=== PATIENT | female | born 1965 | race Caucasian/White ===

== ENCOUNTER 2019-10-31 15:42 | Inpatient (IN) | payer OTHER ==
[2019-10-31 16:48] LABS: #Lymphocytes 2.2 thou/uL (1.20-3.40); #Monocytes 0.9 thou/uL (0.11-0.59); #Neutrophils 6.3 thou/uL (1.40-6.50); %Basophils 0.3 % (0.0-1.0); %Eosinophils 0.3 % (0.0-10.0); %Lymphocytes 23.4 % (21.0-51.0); Hemoglobin 11.1 g/dL (12.0-16.0); Mean Corpuscular HGB CONC 35.9 g/dL (32.0-36.0); Mean Corpuscular Hemoglobin 29.6 pg (27.0-31.0); Mean Corpuscular Volume 82.5 fL (78.0-98.0); Mean Platelet Volume 6.5 fL (7.4-10.4); Platelet Count 271 thou/uL (130-400); RBC Distribution Width 11.8 % (11.5-14.5); Red Blood Cell (RBC) Count 3.75 mill/uL (4.20-5.40); White Blood Cell (WBC) Count 9.4 thou/uL (4.8-10.8)
[2019-10-31 16:56] LABS: Bacteria/HPF None Seen HPF (None Seen); Bilirubin Negative (Negative); Blood, Urine Trace (Negative); Clarity Clear (Clear); Glucose, Urine (Dipstick) Normal (Negative); Leukocyte Negative Leu/uL (Negative); Nitrite Negative (Negative); Protein, Urine (Dipstick) 10 mg/dL (Neg-Trace); RBC/HPF 0-3 HPF (0-3); Squamous Epithelial 0-3 HPF (0-3); Urobilinogen Normal mg/dL (Less than 2); WBC/HPF 0-3 HPF (0-3)
[2019-10-31 17:01] LABS: Acetaminophen Less than 6.0 mcg/mL (10.0-30.0); Alcohol Less than 10 mg/dL (Less than 10); Salicylate Less than 8.0 mg/dL (15.0-30.0)
[2019-10-31 17:02] LABS: Amphetamine Detected (NotDetected); Barbiturates Screen Not Detected (NotDetected); Benzodiazepine Screen Not Detected (NotDetected); Cocaine Metabolite Screen Not Detected (NotDetected); Medtox Control Line Valid? VALID (VALID); Medtox Reader # READER 4; Methadone Not Detected (NotDetected); Methamphetamine Not Detected (NotDetected); Opiate Screen Not Detected (NotDetected); Oxycodone Screen Not Detected (NotDetected); Phencyclidine (PCP) Not Detected (NotDetected); THC/Cannabinoid Screen Not Detected (NotDetected); Tricyclic Screen Not Detected (NotDetected)
[2019-10-31 17:03] LABS: ALT (SGPT) 21 U/L (8-55); AST (SGOT) 22 U/L (5-34); Albumin 3.6 g/dL (3.5-5.0); Alkaline Phosphatase 81 U/L (40-110); Anion Gap 16 mmol/L (10-20); BUN (Urea Nitrogen) 18 mg/dL (9.8-20.1); Bilirubin, Total 0.5 mg/dL (0.2-1.2); CK (CPK) 22 U/L (29-168); Calc. Creatinine Clearance 0 mL/min (70-130); Calcium 7.9 mg/dL (7.8-10.44); Carbon Dioxide 23 mmol/L (22-29); Chloride 87 mmol/L (98-107); Estimated GFR-MDRD 60; Globulin 2.2 g/dL (2.4-3.5); Glucose 158 mg/dL (70-105); Potassium 3.6 mmol/L (3.5-5.1); Protein, Total 5.8 g/dL (6.0-8.3); Sodium 122 mmol/L (136-145)
[2019-10-31] MEDS ORDERED: Ondansetron PF 4 MG/2 ML Vial ONE (18:11)
[2019-10-31] MEDS ORDERED: Acetaminophen 325 MG TAB ONE (18:48)
[2019-10-31] MEDS ORDERED: Bacitracin 1 PK ONE (18:48)
[2019-10-31] MEDS ORDERED: Dextrose 50% Abboject 50 ML SYRINGE SLOW IVP PRN (19:10)
[2019-10-31] MEDS ORDERED: Dextrose 5% in Water 1,000 ML IV PRN (19:10)
[2019-10-31] MEDS ORDERED: Diazepam 5 MG TAB PO PRN (19:11)
--- NOTE | 2019-10-31 19:16 | PDOC.HHP ---
Hospitalist HPI - History of Present Illness History of Present Illness: Ms. Bridges is a 54 y/o lady with PMH of Depression, T2DM, history of left BKA, who presents to the ED with altered mental status. She reportedly came into the ED with sodium of 118. She has been apparently drinking 24 oz of beer daily at the house. She additionally has not been eating and drinking regular water much over the past few days. Apparently, today she felt depressed and had thoughts of suicide but no intent and called her family. They went to her house and called the ambulance as they had seen she fell to her knees and was on the floors. She did not lose consciousness. She reportedly takes multiple psychiatric medications for depression but has had questionable compliance with them. She states that these feelings have been present after amputation of Left BKA last year. She did not hit her head. Denies fever, chills, nausea, vomiting , chest pain, shortness of breath, or other associated symptoms. Hospitalist ROS - Review of Systems Constitutional: denies: fever, chills, sweats, weakness, malaise, other Eyes: denies: pain, vision change, conjunctivae inflammation, eyelid inflammation, redness, other ENT: denies: ear pain, ear discharge, nose pain, nose discharge, nose congestion , mouth pain, mouth swelling, throat pain, throat swelling, other Respiratory: denies: cough, dry, shortness of breath, hemoptysis, SOB with excertion, pleuritic pain, sputum, wheezing, other Cardiovascular: denies: chest pain, palpitations, orthopnea, paroxysmal noc. dyspnea, edema, light headedness, other Gastrointestinal: denies: nausea, vomiting, abdominal pain, diarrhea, constipation, melena, hematochezia, other Genitourinary: denies: dysuria, frequency, incontinence, hematuria, retention, other Musculoskeletal: denies: neck pain, shoulder pain, arm pain, back pain, hand pain, leg pain, foot pain, other Skin: denies: rash, lesions, michelle, bruising, other Neurological: reports: confusion Hospitalist History - Past Medical History Source: patient, family Cardiac: reports: no pertinent history Pulmonary: reports: no pertinent history CELLULAR BIOLOGIST: reports: no pertinent history Gastrointestinal: reports: no pertinent history Heme/Onc: reports: no pertinent history Hepatobiliary: reports: no pertinent history Psych: reports: Anxiety, Addictions, Depression Musculoskeletal: reports: no pertinent history Rheumatologic: reports: no pertinent history Infectious Disease: reports: no pertinent history ENT: reports: no pertinent history Renal/: reports: no pertinent history Endocrine: reports: Diabetes Dermatology: reports: no pertinent history - Past Surgical History Past Surgical History: reports: Other (left BKA) - Family History Family History: reports: no pertinent history - Social History Smoking Status: Smoker, status unknown Alcohol: reports: Heavy Living Situation: Alone Activity level: independent ambulation - Exam General Appearance: NAD, awake alert General - other findings: anxious appearing Eye: PERRL, anicteric sclera ENT: normocephalic atraumatic, no oropharyngeal lesions, moist mucosa Neck: supple, symmetric, no JVD, no thyromegaly, no lymphadenopathy, no carotid bruit Heart: RRR, no murmur, no gallops, no rubs, normal peripheral pulses Respiratory: CTAB, no wheezes, no rales, no ronchi, normal chest expansion, no tachypnea, normal percussion Gastrointestinal: soft, non-tender, non-distended, normal bowel sounds, no palpable masses, no hepatomegaly, no splenomegaly, no bruit Extremities: no cyanosis, no clubbing Extremities - other findings: Left BKA Skin: normal turgor, no lesions, no rashes Neurological: cranial nerve grossly intact, normal sensation to touch, no weakness, no focal deficits, no new deficit Musculoskeletal: normal tone, normal strength, no muscle wasting Psychiatric: normal affect, normal behavior, A&O x 3 Psychiatric - other findings: Anxious, depressed mood Hospitalist Results - Labs Result Diagrams: 10/31/19 16:35 10/31/19 16:35 Lab results: WBC 9.4 thou/uL (4.8-10.8) 10/31/19 16:35 Hgb 11.1 g/dL (12.0-16.0) L 10/31/19 16:35 Hct 30.9 % (36.0-47.0) L 10/31/19 16:35 MCV 82.5 fL (78.0-98.0) 10/31/19 16:35 Plt Count 271 thou/uL (130-400) 10/31/19 16:35 Neutrophils % 67.0 % (42.0-75.0) 10/31/19 16:35 Sodium 122 mmol/L (136-145) L 10/31/19 16:35 Potassium 3.6 mmol/L (3.5-5.1) 10/31/19 16:35 Chloride 87 mmol/L (98-107) L 10/31/19 16:35 Carbon Dioxide 23 mmol/L (22-29) 10/31/19 16:35 BUN 18 mg/dL (9.8-20.1) 10/31/19 16:35 Creatinine 0.98 mg/dL (0.6-1.1) 10/31/19 16:35 Glucose 158 mg/dL (70-105) H 10/31/19 16:35 Calcium 7.9 mg/dL (7.8-10.44) 10/31/19 16:35 Total Bilirubin 0.5 mg/dL (0.2-1.2) 10/31/19 16:35 AST 22 U/L (5-34) 10/31/19 16:35 ALT 21 U/L (8-55) 10/31/19 16:35 Alkaline Phosphatase 81 U/L (40-110) 10/31/19 16:35 Creatine Kinase 22 U/L (29-168) L 10/31/19 16:35 Serum Total Protein 5.8 g/dL (6.0-8.3) L 10/31/19 16:35 Albumin 3.6 g/dL (3.5-5.0) 10/31/19 16:35 Urine Ketones Trace mg/dL (Negative) A 10/31/19 16:15 Urine Blood Trace (Negative) A 10/31/19 16:15 Urine Nitrite Negative (Negative) 10/31/19 16:15 Ur Leukocyte Esterase Negative Lulu/uL (Negative) 10/31/19 16:15 Urine RBC 0-3 HPF (0-3) 10/31/19 16:15 Urine WBC 0-3 HPF (0-3) 10/31/19 16:15 Ur Squamous Epith Cells 0-3 HPF (0-3) 10/31/19 16:15 Urine Bacteria None Seen HPF (None Seen) 10/31/19 16:15 Hospitalist H&P A/P - Problem (1) Hyponatremia Code(s): E87.1 - HYPO-OSMOLALITY AND HYPONATREMIA Status: Acute Assessment and Plan: Multifactorial due to anti-depressants, beer potomania, and decreased oral intake (2) Acute encephalopathy Code(s): G93.40 - ENCEPHALOPATHY, UNSPECIFIED Status: Acute (3) Alcohol abuse Code(s): F10.10 - ALCOHOL ABUSE, UNCOMPLICATED Status: Acute (4) Depression with suicidal ideation Code(s): F32.9 - MAJOR DEPRESSIVE DISORDER, SINGLE EPISODE, UNSPECIFIED; R45.851 - SUICIDAL IDEATIONS Status: Chronic Assessment and Plan: Uncontrolled dperession, noncompliance to medication (5) Type 2 diabetes mellitus Status: Chronic (6) History of amputation below knee Code(s): Z89.519 - ACQUIRED ABSENCE OF UNSPECIFIED LEG BELOW KNEE Status: Chronic - Plan Plan: Admit to telemetry. Likely greater than 2 midnights for eval and tx Sodium has been corrected from 118 to 122, will continue NS @ 100 ml/hr and recheck in the AM, encephalopathy improving Place on ASE alcohol withdrawal protocol Suicide precuations and one to one monitoring, consult to psych MH Medication reconciled for her home Olanzapine and Mirtazpine, could also be affecting her baseline sodium levels Zofran PRN for nausea and vomiting Check A1C in the AM, continue sliding scale insulin, BSG ACHS DVT Prophylaxis: SCDs Code status: Full code Disposition: Admit for sodium monitoring. Consult case management for help with dispo, patient cannot take care of herself at home. Will need psych follow up and optimization of her depression medications.
[2019-10-31] MEDS ORDERED: Thiamine HCl 200 MG/2 ML VIAL IM SCH (20:00)
[2019-10-31] MEDS ORDERED: traMADol HCl 50 MG TAB ONE (21:56)
[2019-11-01] MEDS: Sodium Chloride 0.9% 1,000 ML IV SCH ×2 (00:33→10:31)
[2019-11-01] MEDS: Ondansetron PF 4 MG/2 ML Vial IVP PRN (01:05)
[2019-11-01] MEDS: Acetaminophen 325 MG TAB PO PRN ×2 (01:05→08:16)
[2019-11-01] MEDS: traMADol HCl 50 MG TAB PO PRN ×3 (03:05→21:09)
[2019-11-01] MEDS: Lorazepam 1 MG TAB PO PRN ×4 (03:06→21:09)
[2019-11-01 04:48] LABS: #Lymphocytes 2.6 thou/uL (1.20-3.40); #Monocytes 0.8 thou/uL (0.11-0.59); #Neutrophils 4.7 thou/uL (1.40-6.50); %Basophils 0.4 % (0.0-1.0); %Eosinophils 0.2 % (0.0-10.0); %Lymphocytes 31.7 % (21.0-51.0); %Neutrophils 57.8 % (42.0-75.0); Hemoglobin 10.9 g/dL (12.0-16.0); Mean Corpuscular HGB CONC 36.3 g/dL (32.0-36.0); Mean Corpuscular Hemoglobin 30.1 pg (27.0-31.0); Mean Platelet Volume 6.5 fL (7.4-10.4); Platelet Count 307 thou/uL (130-400); RBC Distribution Width 11.6 % (11.5-14.5); Red Blood Cell (RBC) Count 3.62 mill/uL (4.20-5.40); White Blood Cell (WBC) Count 8.2 thou/uL (4.8-10.8)
[2019-11-01 04:53] LABS: Hemoglobin A1c 6.3 % (4.0-6.0)
[2019-11-01 05:08] LABS: Anion Gap 13 mmol/L (10-20); BUN (Urea Nitrogen) 16 mg/dL (9.8-20.1); Calc. Creatinine Clearance 79 mL/min (70-130); Calcium 8.2 mg/dL (7.8-10.44); Carbon Dioxide 24 mmol/L (22-29); Chloride 90 mmol/L (98-107); Estimated GFR-MDRD 50; Glucose 227 mg/dL (70-105); Potassium 3.2 mmol/L (3.5-5.1); Sodium 124 mmol/L (136-145)
[2019-11-01] MEDS: HumaLOG 300 UNITS/3 ML VIAL SC PRN ×3 (05:48→17:15)
[2019-11-01] MEDS: Magnesium Oxide 400 MG TAB PO SCH (08:16)
[2019-11-01] MEDS: Thiamine 100 MG TAB PO SCH (08:16)
[2019-11-01] MEDS: Multivitamin W/ Minerals 1 TAB PO SCH (08:16)
[2019-11-01] MEDS: Folic Acid 1 MG TAB PO SCH (08:16)
[2019-11-01] MEDS ORDERED: Sodium Chloride 0.9% 1,000 ML IV SCH (10:06)
[2019-11-01] MEDS ORDERED: HumaLOG 300 UNITS/3 ML VIAL SC PRN (10:12)
[2019-11-01] MEDS ORDERED: Potassium Chloride 20 MEQ TAB PO SCH (10:15)
--- NOTE | 2019-11-01 10:15 | PDOC.HOSPP ---
- Subjective Encounter Date: 11/01/19 (f/u hyponatremia) Encounter Time: 10:13 Subjective: Pt reports she is feeling better - she c/o chronic pain, weakness. States she was ready to give up yesterday and was drinking. Denies any n/v - Objective Vital Signs & Weight: Vital Signs (12 hours) Temp Pulse Resp BP BP BP Pulse Ox 11/01/19 08:10 98.6 F 89 16 116/60 96 11/01/19 03:27 97.5 F L 91 16 118/58 L 92 L 10/31/19 22:30 98.3 F 91 16 127/68 127/68 99 Weight Weight 190 lb Result Diagrams: 11/01/19 04:20 11/01/19 04:20 Additional Labs: Accuchecks 11/01/19 10/31/19 05:39 21:52 POC Glucose 244 H 178 H EKG Reviewed by me: Yes (tele - sinus 90's) Hospitalist ROS - Review of Systems Constitutional: reports: weakness - Medication Medications: Active Medications Generic Name Dose Route Start Last Admin Trade Name Freq PRN Reason Stop Dose Admin Acetaminophen 650 mg 10/31/19 18:51 11/01/19 08:16 Tylenol PO 650 mg Q4H PRN Administration Headache/Fever/Mild Pain (1-3) Folic Acid 1 mg 11/01/19 09:00 11/01/19 08:16 Folvite PO 1 mg DAILY HARSHAL Administration Insulin Human Lispro 0 units 10/31/19 19:10 11/01/19 05:48 Humalog SC 3 unit .MILD SLIDING SCALE PRN Administration Mild Correctional Scale Iron/Minerals/Multivitamins 1 tab 11/01/19 09:00 11/01/19 08:16 Theragran M PO 1 tab DAILY HARSHAL Administration Lorazepam 1 mg 11/01/19 02:56 11/01/19 09:37 Ativan PO 1 mg Q6H PRN Administration Anxiety Magnesium Oxide 400 mg 11/01/19 09:00 11/01/19 08:16 Magnesium Oxide PO 400 mg DAILY HARSHAL Administration Ondansetron HCl 4 mg 10/31/19 18:51 11/01/19 01:05 Zofran IVP 4 mg Q6H PRN Administration Nausea/Vomiting Thiamine HCl 100 mg 11/01/19 09:00 11/01/19 08:16 Thiamine PO 100 mg DAILY HARSHAL Administration Tramadol HCl 50 mg 11/01/19 03:00 11/01/19 03:05 Ultram PO 50 mg Q8H PRN Administration Pain - Exam General Appearance: NAD Heart: RRR, no murmur Respiratory: CTAB, no wheezes Respiratory - other findings: distant lung sounds Gastrointestinal: soft, non-tender, non-distended, normal bowel sounds Extremities: no cyanosis, no clubbing, no edema Extremities - other findings: left bka Psychiatric - other findings: blunted affect, l/l/gd thought process Hosp A/P (1) Hyponatremia Code(s): E87.1 - HYPO-OSMOLALITY AND HYPONATREMIA Status: Acute (2) Hypokalemia Code(s): E87.6 - HYPOKALEMIA Status: Acute (3) Acute encephalopathy Code(s): G93.40 - ENCEPHALOPATHY, UNSPECIFIED Status: Acute (4) Alcohol abuse Code(s): F10.10 - ALCOHOL ABUSE, UNCOMPLICATED Status: Chronic (5) Depression with suicidal ideation Code(s): F32.9 - MAJOR DEPRESSIVE DISORDER, SINGLE EPISODE, UNSPECIFIED; R45.851 - SUICIDAL IDEATIONS Status: Acute (6) Type 2 diabetes mellitus Status: Chronic Qualifiers: Diabetes mellitus shelter insulin use: with shelter use - Plan Hyponatremia - q6h checks - Nephrology consult - monitor creatinine - slight increase today hypokalemia - replace - check mag DM 2 - pt reports taking levemir at home - 13 units BID, will start here at 15 units once daily - SSI with meals and bedtime Alcohol use/abuse - monitor for withdrawal with ASE protocol weakness - pt/ot will need [facility] when ready for discharge dvt prophy - lovenox gi prophy - not indicated code status full reviewed plan of care with patient, no questions or further needs at end of eval
[2019-11-01] MEDS ORDERED: Insulin Glargine 15 UNITS in Pre-Filled Syringe 1 EACH SC SCH (10:30)
[2019-11-01 12:33] LABS: Anion Gap 14 mmol/L (10-20); BUN (Urea Nitrogen) 17 mg/dL (9.8-20.1); Calc. Creatinine Clearance 81 mL/min (70-130); Calcium 8.2 mg/dL (7.8-10.44); Carbon Dioxide 24 mmol/L (22-29); Chloride 93 mmol/L (98-107); Estimated GFR-MDRD 52; Glucose 185 mg/dL (70-105); Potassium 3.6 mmol/L (3.5-5.1); Sodium 127 mmol/L (136-145)
--- NOTE | 2019-11-01 14:29 | CON ---
DATE OF CONSULTATION: 11/01/2019 CONSULTING PHYSICIAN: Anais Yi MD REASON FOR CONSULTATION: Hyponatremia. REASON FOR ADMISSION: Altered mentation. HISTORY OF PRESENT ILLNESS: This is a 54-year-old female with history of depression, type 2 diabetes, came to the hospital with altered mentation and was found to have low sodium of 118, started on IV fluids and with slow collection and Nephrology was consulted. The patient is severely depressed and also alcohol use and is asking for help to fight with her addiction. She was also complaining of nausea, vomiting, and diarrhea before admission. PAST MEDICAL HISTORY: Positive for depression, type 2 diabetes, peripheral vascular disease, and alcohol use. PAST SURGICAL HISTORY: Left BKA. HOME MEDICATIONS: Reviewed. ALLERGIES: NO KNOWN DRUG ALLERGIES. SOCIAL HISTORY: No smoking, alcohol, or illicit drug abuse. FAMILY HISTORY: No history of any kidney disease. REVIEW OF SYSTEMS: CONSTITUTIONAL: Negative for weight loss or gain, ability to conduct usual activities. SKIN: Negative for rash, itching. EYES: Negative for double vision, pain. ENT/MOUTH: Negative for nose bleeding, neck stiffness, pain, tenderness. CARDIOVASCULAR: Negative for palpitations, dyspnea on exertion, orthopnea. RESPIRATORY: Negative for shortness of breath, wheezing, cough, hemoptysis, fever or night sweats. GASTROINTESTINAL: Negative for poor appetite, abdominal pain, heartburn, nausea, vomiting, constipation, or diarrhea. GENITOURINARY: Negative for urgency, frequency, dysuria, nocturia. MUSCULOSKELETAL: Negative for pain, swelling. NEUROLOGIC/PSYCHIATRIC: Negative for anxiety, depression. ALLERGY/IMMUNOLOGIC: Negative for skin rash, bleeding tendency. PHYSICAL EXAMINATION: GENERAL: Reveals a well-built female, in no apparent distress. VITAL SIGNS: Temperature 98.6, pulse 89, respiratory rate 16, and blood pressure 116/60. HEENT: Atraumatic, normocephalic. Oral mucosa is moist. NECK: Supple. CARDIOVASCULAR: S1 and S2. Rate and rhythm regular. RESPIRATORY: Clear. GASTROINTESTINAL: Abdomen is soft. MUSCULOSKELETAL: No tenderness. No edema. DERMATOLOGIC: No skin rash. NEUROLOGIC: Alert and awake. PSYCHIATRIC: Flat affect. LABORATORY DATA: Hemoglobin is 10.9. Potassium 3.6, sodium 127 from 118 yesterday, BUN 17, and creatinine is 1.1. ASSESSMENT AND PLAN: 1. Sodium with nine points of correction within 24 hours. I would stop the IV fluids and we will monitor the sodium closely every 6 hour. 2. Edema, controlled. 3. History of hypertension. 4. Anemia. 5. Depression with alcohol use, need assistance. 6. Amphetamine use. 7. We will stop IV fluids and monitor sodium. Job ID: [id number]
--- NOTE | 2019-11-01 16:23 | PDOC.EVN ---
Event Note - Event Note Event Note: pt reported to nurse that tramadol is not working for her - requested norco. Will adjust tramadol to 50 mg tabs - 1 or 2 q6h prn for different levels of pain , specified in the order.
[2019-11-01 18:28] LABS: Anion Gap 13 mmol/L (10-20); BUN (Urea Nitrogen) 16 mg/dL (9.8-20.1); Calc. Creatinine Clearance 85 mL/min (70-130); Calcium 8.6 mg/dL (7.8-10.44); Carbon Dioxide 26 mmol/L (22-29); Chloride 95 mmol/L (98-107); Estimated GFR-MDRD 55; Glucose 159 mg/dL (70-105); Potassium 4.3 mmol/L (3.5-5.1); Sodium 130 mmol/L (136-145)
[2019-11-02] MEDS: traMADol HCl 50 MG TAB PO PRN (04:43)
[2019-11-02 04:46] LABS: #Lymphocytes 3.4 thou/uL (1.20-3.40); #Neutrophils 5.3 thou/uL (1.40-6.50); %Basophils 0.4 % (0.0-1.0); %Eosinophils 0.4 % (0.0-10.0); %Lymphocytes 34.9 % (21.0-51.0); %Neutrophils 54.3 % (42.0-75.0); Hemoglobin 11.7 g/dL (12.0-16.0); Mean Corpuscular HGB CONC 33.8 g/dL (32.0-36.0); Mean Corpuscular Hemoglobin 28.6 pg (27.0-31.0); Mean Corpuscular Volume 84.5 fL (78.0-98.0); Mean Platelet Volume 6.4 fL (7.4-10.4); Platelet Count 343 thou/uL (130-400); RBC Distribution Width 12.1 % (11.5-14.5); Red Blood Cell (RBC) Count 4.09 mill/uL (4.20-5.40); White Blood Cell (WBC) Count 9.7 thou/uL (4.8-10.8)
[2019-11-02 04:57] LABS: Anion Gap 13 mmol/L (10-20); BUN (Urea Nitrogen) 14 mg/dL (9.8-20.1); Calc. Creatinine Clearance 91 mL/min (70-130); Calcium 8.3 mg/dL (7.8-10.44); Carbon Dioxide 24 mmol/L (22-29); Chloride 100 mmol/L (98-107); Estimated GFR-MDRD 60; Glucose 165 mg/dL (70-105); Potassium 4.2 mmol/L (3.5-5.1); Sodium 133 mmol/L (136-145)
[2019-11-02] MEDS: Lorazepam 1 MG TAB PO PRN ×3 (09:40→21:03)
[2019-11-02] MEDS: Thiamine 100 MG TAB PO SCH (09:43)
[2019-11-02] MEDS: Magnesium Oxide 400 MG TAB PO SCH (09:43)
[2019-11-02] MEDS: Folic Acid 1 MG TAB PO SCH (09:43)
[2019-11-02] MEDS: Multivitamin W/ Minerals 1 TAB PO SCH (09:43)
[2019-11-02] MEDS: Enoxaparin Sodium 40 MG/0.4 ML SYRINGE SC SCH (09:48)
[2019-11-02] MEDS: Diazepam 5 MG TAB PO PRN (10:42)
[2019-11-02] MEDS: Insulin Glargine 15 UNITS in Pre-Filled Syringe 1 EACH SC SCH (10:44)
--- NOTE | 2019-11-02 12:51 | PDOC.HOSPP ---
- Subjective Encounter Date: 11/02/19 (f/u hyponatremia) Encounter Time: 12:50 Subjective: Nursing staff report pt was agitated earlier today, stating she wanted to leave , she wants a divorce with her who is in the room. Right now she thinks she is in yarsanism. She reports some pain in her kidney area. - Objective Vital Signs & Weight: Vital Signs (12 hours) Temp Pulse Resp BP BP Pulse Ox 11/02/19 11:55 98.6 F 92 18 144/74 H 144/74 H 96 11/02/19 10:40 129/70 11/02/19 07:05 98.5 F 90 18 125/72 96 11/02/19 04:04 98.8 F 93 16 129/71 100 Weight Admit Weight 192 lb 3.2 oz Weight 190 lb 9.6 oz I&O: 11/01/19 11/02/19 11/03/19 06:59 06:59 06:59 Intake Total 2180 Output Total 1550 Balance 630 Result Diagrams: 11/02/19 04:14 11/02/19 04:14 Additional Labs: Accuchecks 11/02/19 11/02/19 11/01/19 10:27 05:46 20:32 POC Glucose 198 H 151 H 153 H 11/01/19 16:38 POC Glucose 238 H EKG Reviewed by me: Yes (tele - sinus 80's-100's with occ pvc's) Hospitalist ROS - Medication Medications: Active Medications Generic Name Dose Route Start Last Admin Trade Name Freq PRN Reason Stop Dose Admin Acetaminophen 650 mg 10/31/19 18:51 11/01/19 08:16 Tylenol PO 650 mg Q4H PRN Administration Headache/Fever/Mild Pain (1-3) Diazepam 5 mg 11/01/19 04:00 11/02/19 10:42 Valium PO 5 mg Q4H PRN Administration FOR ASE 10 OR GREATER Enoxaparin Sodium 40 mg 11/02/19 09:00 11/02/19 09:48 Lovenox SC 40 mg 0900 HARSHAL Administration Folic Acid 1 mg 11/01/19 09:00 11/02/19 09:43 Folvite PO 1 mg DAILY HARSHAL Administration Insulin Glargine 15 units/ 0.15 mls @ 0 mls/hr 11/02/19 09:00 11/02/19 10:44 Miscellaneous Medication SC 0.15 mls QAM HARSHAL Administration Insulin Human Lispro 0 units 10/31/19 19:10 11/01/19 17:15 Humalog SC 3 unit .MILD SLIDING SCALE PRN Administration Mild Correctional Scale Iron/Minerals/Multivitamins 1 tab 11/01/19 09:00 11/02/19 09:43 Theragran M PO 1 tab DAILY HRASHAL Administration Lorazepam 1 mg 11/01/19 02:56 11/02/19 09:40 Ativan PO 1 mg Q6H PRN Administration Anxiety Magnesium Oxide 400 mg 11/01/19 09:00 11/02/19 09:43 Magnesium Oxide PO 400 mg DAILY HARSHAL Administration Ondansetron HCl 4 mg 10/31/19 18:51 11/01/19 01:05 Zofran IVP 4 mg Q6H PRN Administration Nausea/Vomiting Thiamine HCl 100 mg 11/01/19 09:00 11/02/19 09:43 Thiamine PO 100 mg DAILY HARSHAL Administration Tramadol HCl 100 mg 11/01/19 16:21 11/02/19 04:43 Ultram PO 100 mg Q6H PRN Administration Moderate to Severe Pain (6-10) - Exam General Appearance: NAD Respiratory: CTAB, no wheezes Gastrointestinal: soft, non-tender, non-distended, normal bowel sounds Extremities: no cyanosis, no clubbing, no edema Extremities - other findings: multiple ecchymosis along bilateral LE and left BKA Skin - other findings: few areas of ecchymosis on back Musculoskeletal - other findings: back - ttp along the left paralumbar muscles without palpa abnormality Psychiatric - other findings: oriented to person, time, but not to location/ situation Hosp A/P (1) Hyponatremia Code(s): E87.1 - HYPO-OSMOLALITY AND HYPONATREMIA Status: Acute (2) Hypokalemia Code(s): E87.6 - HYPOKALEMIA Status: Acute (3) Acute encephalopathy Code(s): G93.40 - ENCEPHALOPATHY, UNSPECIFIED Status: Acute (4) Alcohol abuse Code(s): F10.10 - ALCOHOL ABUSE, UNCOMPLICATED Status: Chronic (5) Depression with suicidal ideation Code(s): F32.9 - MAJOR DEPRESSIVE DISORDER, SINGLE EPISODE, UNSPECIFIED; R45.101 - SUICIDAL IDEATIONS Status: Acute (6) Type 2 diabetes mellitus Status: Chronic Qualifiers: Diabetes mellitus shelter insulin use: with terminal system operator use - Plan Hyponatremia - improved, IVF stopped early in day yesterday - appreciate Nephrology consult hypokalemia - resolved, magnesium level was normal DM 2 - controlled, continue long acting and short acting insulin Alcohol use/abuse - monitor for withdrawal with ASE protocol - pt is off of her multiple mood medications - uncertain of her baseline. From the hyponatremia perspective, she is cleared for [facility]MR evaluation. Will need to continue monitoring for alcohol withdrawal and treat accordingly weakness - pt/ot Consult [facility] today for evaluation. dvt prophy - lovenox gi prophy - not indicated code status full reviewed plan of care with patient, no questions or further needs at end of eval Addendum - 17:21 - called by charge nurse who asked if pt medically cleared for [facility]. I thought [facility] was contacted already - they have not been. Reviewed ASE scores today and 10 (received valium) and 8 soon after. Recommend that we monitor for alcohol withdrawal overnight and if no signs, contact [facility]MR in the morning.
--- NOTE | 2019-11-02 14:19 | PRG ---
DATE OF SERVICE: 11/02/2019 SUBJECTIVE: Patient was seen and examined at bedside and overnight events noted. Patient denies any shortness of breath or chest pain or palpitation. No history of nausea or vomiting or diarrhea or fever or chills or cramps. OBJECTIVE: GENERAL: This is an obese female, in no apparent distress. VITAL SIGNS: Temperature 98.6. Heart rate 93. Respiratory rate 18. Blood pressure 144/74. HEENT: Atraumatic, normocephalic. Oral mucosa is moist NECK: Supple. CARDIOVASCULAR: S1, S2 heard. Rate and rhythm regular. RESPIRATORY: Clear to auscultation. GASTROINTESTINAL: Abdomen is soft. MUSCULOSKELETAL: No tenderness. No edema. DERMATOLOGIC: No skin rash. NEUROLOGIC: Alert and awake and oriented X3. No focal neurologic deficits. Moving all the extremities. PSYCHIATRIC: Mood and affect normal. LABORATORY DATA: Potassium is 4.2, sodium 133, creatinine is 0.9. ASSESSMENT AND PLAN: 1. Hyponatremia. Sodium without acute correction. IV fluids already started. We will monitor. 2. Edema, controlled. 3. History of hypertension. 4. Anemia. 5. Depression. 6. Substance abuse. 7. Continue counseling. We will monitor sodium. Job ID: [id number]
[2019-11-03 05:12] LABS: Anion Gap 11 mmol/L (10-20); BUN (Urea Nitrogen) 15 mg/dL (9.8-20.1); Calc. Creatinine Clearance 108 mL/min (70-130); Calcium 8.9 mg/dL (7.8-10.44); Carbon Dioxide 26 mmol/L (22-29); Chloride 103 mmol/L (98-107); Estimated GFR-MDRD 72; Glucose 145 mg/dL (70-105); Potassium 4.3 mmol/L (3.5-5.1); Sodium 136 mmol/L (136-145)
[2019-11-03] MEDS: Magnesium Oxide 400 MG TAB PO SCH (07:56)
[2019-11-03] MEDS: Folic Acid 1 MG TAB PO SCH (07:56)
[2019-11-03] MEDS: Enoxaparin Sodium 40 MG/0.4 ML SYRINGE SC SCH (07:56)
[2019-11-03] MEDS: Multivitamin W/ Minerals 1 TAB PO SCH (07:56)
[2019-11-03] MEDS: Thiamine 100 MG TAB PO SCH (07:56)
[2019-11-03] MEDS: Diazepam 5 MG TAB PO PRN ×4 (07:58→21:25)
[2019-11-03] MEDS: Insulin Glargine 15 UNITS in Pre-Filled Syringe 1 EACH SC SCH (08:00)
--- NOTE | 2019-11-03 10:48 | PDOC.HOSPP ---
- Subjective Encounter Date: 11/03/19 Encounter Time: 13:30 Subjective: Patient very shaky this morning, mildly confused. Oriented to person, date, year , town, but not hospital. Denies visual or tactile hallucinations. States she hasn't had EtOH for 3 weeks, which is different from the history obtained in the ER that she has recently been drinking heavily. - Objective Vital Signs & Weight: Vital Signs (12 hours) Temp Pulse Pulse Resp BP BP BP 11/03/19 09:17 107 H 156/95 H 11/03/19 07:36 97.9 F 103 H 20 181/81 H 11/03/19 04:00 141/70 H 11/03/19 03:40 98.7 F 99 20 141/70 H Pulse Ox 11/03/19 09:17 11/03/19 07:36 98 11/03/19 04:00 11/03/19 03:40 96 Weight Admit Weight 192 lb 3.2 oz Weight 189 lb 8 oz I&O: 11/02/19 11/03/19 11/04/19 06:59 06:59 06:59 Intake Total 2180 1000 Output Total 1550 900 Balance 630 100 Result Diagrams: 11/02/19 04:14 11/03/19 04:09 Additional Labs: Accuchecks 11/03/19 11/02/19 11/02/19 10:34 21:04 16:51 POC Glucose 158 H 185 H 162 H 11/02/19 10:27 POC Glucose 198 H Hospitalist ROS - Review of Systems Constitutional: denies: fever Respiratory: denies: cough, shortness of breath Cardiovascular: denies: chest pain, palpitations, orthopnea Gastrointestinal: denies: nausea, vomiting, abdominal pain Neurological: reports: confusion. denies: seizures - Medication Medications: Active Medications Generic Name Dose Route Start Last Admin Trade Name Freq PRN Reason Stop Dose Admin Acetaminophen 650 mg 10/31/19 18:51 11/01/19 08:16 Tylenol PO 650 mg Q4H PRN Administration Headache/Fever/Mild Pain (1-3) Diazepam 5 mg 11/01/19 04:00 11/03/19 07:58 Valium PO 5 mg Q4H PRN Administration FOR ASE 10 OR GREATER Enoxaparin Sodium 40 mg 11/02/19 09:00 11/03/19 07:56 Lovenox SC 40 mg 0900 HARSHAL Administration Folic Acid 1 mg 11/01/19 09:00 11/03/19 07:56 Folvite PO 1 mg DAILY HARSHAL Administration Insulin Glargine 15 units/ 0.15 mls @ 0 mls/hr 11/02/19 09:00 11/03/19 08:00 Miscellaneous Medication SC 0.15 mls QAM HARSHAL Administration Insulin Human Lispro 0 units 10/31/19 19:10 11/01/19 17:15 Humalog SC 3 unit .MILD SLIDING SCALE PRN Administration Mild Correctional Scale Iron/Minerals/Multivitamins 1 tab 11/01/19 09:00 11/03/19 07:56 Theragran M PO 1 tab DAILY HARSHAL Administration Lorazepam 1 mg 11/01/19 02:56 11/02/19 21:03 Ativan PO 1 mg Q6H PRN Administration Anxiety Magnesium Oxide 400 mg 11/01/19 09:00 11/03/19 07:56 Magnesium Oxide PO 400 mg DAILY HARSHAL Administration Ondansetron HCl 4 mg 10/31/19 18:51 11/01/19 01:05 Zofran IVP 4 mg Q6H PRN Administration Nausea/Vomiting Sodium Chloride 10 ml 10/31/19 19:13 11/02/19 21:02 Flush - Normal Saline IVF 10 ml PRN PRN Administration Saline Flush Thiamine HCl 100 mg 11/01/19 09:00 11/03/19 07:56 Thiamine PO 100 mg DAILY HARSHAL Administration Tramadol HCl 100 mg 11/01/19 16:21 11/02/19 04:43 Ultram PO 100 mg Q6H PRN Administration Moderate to Severe Pain (6-10) - Exam General Appearance: awake alert Eye: anicteric sclera ENT: moist mucosa Heart: RRR, no murmur, no gallops, no rubs Respiratory: CTAB, no wheezes, no rales, no ronchi Gastrointestinal: soft, non-tender, non-distended, normal bowel sounds Neurological - other findings: bilateral moderate tremors to hands Psychiatric: oriented to person, oriented to time Hosp A/P (1) Alcohol dependence with withdrawal Code(s): F10.239 - ALCOHOL DEPENDENCE WITH WITHDRAWAL, UNSPECIFIED Status: Acute (2) Acute encephalopathy Code(s): G93.40 - ENCEPHALOPATHY, UNSPECIFIED Status: Acute (3) Depression with suicidal ideation Code(s): F32.9 - MAJOR DEPRESSIVE DISORDER, SINGLE EPISODE, UNSPECIFIED; R45.851 - SUICIDAL IDEATIONS Status: Acute (4) Hypokalemia Code(s): E87.6 - HYPOKALEMIA Status: Resolved (5) Hyponatremia Code(s): E87.1 - HYPO-OSMOLALITY AND HYPONATREMIA Status: Resolved (6) Alcohol abuse Code(s): F10.10 - ALCOHOL ABUSE, UNCOMPLICATED Status: Chronic (7) History of amputation below knee Code(s): Z89.519 - ACQUIRED ABSENCE OF UNSPECIFIED LEG BELOW KNEE Status: Chronic (8) Type 2 diabetes mellitus Status: Chronic Qualifiers: Diabetes mellitus assisted insulin use: with intermediate card tender use - Plan Patient now in acute alcohol withdrawl, giving valium, some hypertension and tachycardia Not stable for [facility] yet Continue close monitoring and treatment for withdrawls.
--- NOTE | 2019-11-03 11:54 | PRG ---
DATE OF SERVICE: 11/03/2019 SUBJECTIVE: Patient was seen and examined at bedside and overnight events noted. Patient denies any shortness of breath or chest pain or palpitation. No history of nausea or vomiting or diarrhea or fever or chills or cramps. OBJECTIVE: GENERAL: This is an obese female, in no apparent distress. VITAL SIGNS: Temperature 97.9. Heart rate 103. Respiratory rate 20. Blood pressure 181/81. HEENT: Atraumatic, normocephalic. Oral mucosa is moist NECK: Supple. CARDIOVASCULAR: S1, S2 heard. Rate and rhythm regular. RESPIRATORY: Clear to auscultation. GASTROINTESTINAL: Abdomen is soft. MUSCULOSKELETAL: No tenderness. No edema. DERMATOLOGIC: No skin rash. NEUROLOGIC: Alert and awake and oriented X3. No focal neurologic deficits. Moving all the extremities. PSYCHIATRIC: Mood and affect normal. LABORATORY DATA: Potassium 4.3, BUN is 15, creatinine 0.8, sodium is 136. ASSESSMENT AND PLAN: 1. Hyponatremia, better, corrected. 2. Edema, controlled. 3. Hypertension. 4. Anemia. 5. Depression. Sodium is stable. I will sign off. Please call back with any questions. Job ID: [id number]
[2019-11-03] MEDS: HumaLOG 300 UNITS/3 ML VIAL SC PRN (12:25)
[2019-11-03] MEDS: Lorazepam 1 MG TAB PO PRN ×2 (15:46→21:25)
[2019-11-04] MEDS: Diazepam 5 MG TAB PO PRN ×3 (00:26→15:18)
[2019-11-04 05:17] LABS: Anion Gap 15 mmol/L (10-20); BUN (Urea Nitrogen) 17 mg/dL (9.8-20.1); Calc. Creatinine Clearance 110 mL/min (70-130); Calcium 9.1 mg/dL (7.8-10.44); Carbon Dioxide 22 mmol/L (22-29); Chloride 104 mmol/L (98-107); Estimated GFR-MDRD 74; Glucose 153 mg/dL (70-105); Sodium 137 mmol/L (136-145)
--- NOTE | 2019-11-04 09:01 | PDOC.HOSPP ---
- Subjective Encounter Date: 11/04/19 Encounter Time: 11:50 Subjective: Patient still very confused. Was agitated overnight. Denies hallucinations. - Objective Vital Signs & Weight: Vital Signs (12 hours) Temp Pulse Resp BP BP Pulse Ox 11/04/19 07:45 98.2 F 113 H 25 H 143/73 H 143/73 H 97 11/04/19 03:19 98.1 F 108 H 20 191/82 H 97 Weight Admit Weight 192 lb 3.2 oz Weight 185 lb 6.4 oz I&O: 11/03/19 11/04/19 11/05/19 06:59 06:59 06:59 Intake Total 1000 Output Total 900 Balance 100 Result Diagrams: 11/02/19 04:14 11/04/19 04:17 Additional Labs: Accuchecks 11/04/19 11/03/19 11/03/19 06:28 21:32 17:01 POC Glucose 156 H 149 H 123 H 11/03/19 10:34 POC Glucose 158 H Hospitalist ROS - Review of Systems Constitutional: denies: fever, chills Respiratory: denies: cough, shortness of breath Cardiovascular: denies: chest pain, palpitations, orthopnea Gastrointestinal: denies: nausea, vomiting, abdominal pain Neurological: reports: confusion - Medication Medications: Active Medications Generic Name Dose Route Start Last Admin Trade Name Freq PRN Reason Stop Dose Admin Acetaminophen 650 mg 10/31/19 18:51 11/01/19 08:16 Tylenol PO 650 mg Q4H PRN Administration Headache/Fever/Mild Pain (1-3) Diazepam 5 mg 11/01/19 04:00 11/04/19 07:51 Valium PO 5 mg Q4H PRN Administration FOR ASE 10 OR GREATER Enoxaparin Sodium 40 mg 11/02/19 09:00 11/03/19 07:56 Lovenox SC 40 mg 0900 HARSHAL Administration Folic Acid 1 mg 11/01/19 09:00 11/03/19 07:56 Folvite PO 1 mg DAILY HASRHAL Administration Insulin Glargine 15 units/ 0.15 mls @ 0 mls/hr 11/02/19 09:00 11/03/19 08:00 Miscellaneous Medication SC 0.15 mls QAM HARSHAL Administration Insulin Human Lispro 0 units 10/31/19 19:10 11/03/19 12:25 Humalog SC 2 unit .MILD SLIDING SCALE PRN Administration Mild Correctional Scale Iron/Minerals/Multivitamins 1 tab 11/01/19 09:00 11/03/19 07:56 Theragran M PO 1 tab DAILY HARSHAL Administration Lorazepam 1 mg 11/01/19 02:56 11/03/19 21:25 Ativan PO 1 mg Q6H PRN Administration Anxiety Magnesium Oxide 400 mg 11/01/19 09:00 11/03/19 07:56 Magnesium Oxide PO 400 mg DAILY HARSHAL Administration Ondansetron HCl 4 mg 10/31/19 18:51 11/01/19 01:05 Zofran IVP 4 mg Q6H PRN Administration Nausea/Vomiting Sodium Chloride 10 ml 10/31/19 19:13 11/02/19 21:02 Flush - Normal Saline IVF 10 ml PRN PRN Administration Saline Flush Thiamine HCl 100 mg 11/01/19 09:00 11/03/19 07:56 Thiamine PO 100 mg DAILY HARSHAL Administration Tramadol HCl 100 mg 11/01/19 16:21 11/02/19 04:43 Ultram PO 100 mg Q6H PRN Administration Moderate to Severe Pain (6-10) - Exam General Appearance: awake alert General - other findings: mild psychomotor agitation Eye: anicteric sclera ENT: moist mucosa Neck: supple, symmetric Heart: RRR, no murmur, no gallops, no rubs Respiratory: CTAB, no wheezes, no rales, no ronchi Gastrointestinal: soft, non-tender, non-distended, normal bowel sounds Psychiatric: oriented to person, not oriented Hosp A/P (1) Alcohol dependence with withdrawal Code(s): F10.239 - ALCOHOL DEPENDENCE WITH WITHDRAWAL, UNSPECIFIED Status: Acute (2) Acute encephalopathy Code(s): G93.40 - ENCEPHALOPATHY, UNSPECIFIED Status: Acute (3) Depression with suicidal ideation Code(s): F32.9 - MAJOR DEPRESSIVE DISORDER, SINGLE EPISODE, UNSPECIFIED; R45.851 - SUICIDAL IDEATIONS Status: Acute (4) Hypokalemia Code(s): E87.6 - HYPOKALEMIA Status: Resolved (5) Hyponatremia Code(s): E87.1 - HYPO-OSMOLALITY AND HYPONATREMIA Status: Resolved (6) Alcohol abuse Code(s): F10.10 - ALCOHOL ABUSE, UNCOMPLICATED Status: Chronic (7) History of amputation below knee Code(s): Z89.519 - ACQUIRED ABSENCE OF UNSPECIFIED LEG BELOW KNEE Status: Chronic (8) Type 2 diabetes mellitus Status: Chronic Qualifiers: Diabetes mellitus director long term care insulin use: with director long term care use - Plan Patient now in acute alcohol withdrawl, giving valium, some hypertension and tachycardia Not stable for [facility] yet Continue close monitoring and treatment for withdrawls. Will resume patient's home meds for colitis and psychiatric disorders
[2019-11-04] MEDS: Multivitamin W/ Minerals 1 TAB PO SCH (09:26)
[2019-11-04] MEDS: Folic Acid 1 MG TAB PO SCH (09:26)
[2019-11-04] MEDS: Magnesium Oxide 400 MG TAB PO SCH (09:26)
[2019-11-04] MEDS: Enoxaparin Sodium 40 MG/0.4 ML SYRINGE SC SCH (09:26)
[2019-11-04] MEDS: Insulin Glargine 15 UNITS in Pre-Filled Syringe 1 EACH SC SCH (09:27)
[2019-11-04] MEDS: Thiamine 100 MG TAB PO SCH (09:27)
[2019-11-04] MEDS: Acetaminophen 325 MG TAB PO PRN (15:18)
[2019-11-04] MEDS: hydrOXYzine 25 MG TAB PO SCH (20:48)
[2019-11-04] MEDS: Dicyclomine 10 MG CAP PO SCH (20:48)
[2019-11-04] MEDS: Mirtazapine 15 MG Soltab PO SCH (20:48)
[2019-11-05] MEDS: Insulin Glargine 15 UNITS in Pre-Filled Syringe 1 EACH SC SCH (09:14)
[2019-11-05] MEDS: Lorazepam 1 MG TAB PO PRN (09:15)
[2019-11-05] MEDS: traMADol HCl 50 MG TAB PO PRN ×2 (09:15→15:16)
[2019-11-05] MEDS: PARoxetine 20 MG TAB PO SCH (09:17)
[2019-11-05] MEDS: Bupropion 150 MG XL TAB PO SCH (09:17)
[2019-11-05] MEDS: Multivitamin W/ Minerals 1 TAB PO SCH (09:18)
[2019-11-05] MEDS: Magnesium Oxide 400 MG TAB PO SCH (09:18)
[2019-11-05] MEDS: Folic Acid 1 MG TAB PO SCH (09:18)
[2019-11-05] MEDS: OLANZapine ODT 5 MG TAB PO SCH (09:18)
[2019-11-05] MEDS: hydrOXYzine 25 MG TAB PO SCH ×2 (09:19→21:10)
[2019-11-05] MEDS: Thiamine 100 MG TAB PO SCH (09:19)
[2019-11-05] MEDS: Dicyclomine 10 MG CAP PO SCH ×2 (09:19→21:10)
[2019-11-05] MEDS: Enoxaparin Sodium 40 MG/0.4 ML SYRINGE SC SCH (09:20)
--- NOTE | 2019-11-05 12:02 | PDOC.HOSPP ---
- Subjective Encounter Date: 11/05/19 Encounter Time: 11:50 Subjective: Patient less agitated, sleeping this AM, may need to hold the home hydroxyzine if too sedating. All home meds restarted. - Objective Vital Signs & Weight: Vital Signs (12 hours) Temp Pulse Resp BP BP Pulse Ox 11/05/19 08:57 97.7 F 98 16 170/77 H 170/77 H 97 11/05/19 03:49 99.6 F 89 16 150/103 H 150/103 H Weight Admit Weight 192 lb 3.2 oz Weight 184 lb I&O: 11/04/19 11/05/19 11/06/19 06:59 06:59 06:59 Intake Total 550 120 Balance 550 120 Result Diagrams: 11/02/19 04:14 11/04/19 04:17 Additional Labs: Accuchecks 11/05/19 11/05/19 11/04/19 10:40 05:17 20:48 POC Glucose 225 H 130 H 167 H 11/04/19 17:05 POC Glucose 152 H Hospitalist ROS - Review of Systems ROS unobtainable: due to mental status - Medication Medications: Active Medications Generic Name Dose Route Start Last Admin Trade Name Freq PRN Reason Stop Dose Admin Acetaminophen 650 mg 10/31/19 18:51 11/04/19 15:18 Tylenol PO 650 mg Q4H PRN Administration Headache/Fever/Mild Pain (1-3) Budesonide 9 mg 11/05/19 09:00 11/05/19 09:19 Entocort Ec PO 9 mg DAILY HARSHAL Administration Bupropion HCl 300 mg 11/05/19 09:00 11/05/19 09:17 Wellbutrin Xl PO 300 mg QAM HARSHAL Administration Colestipol HCl 2 gm 11/04/19 21:00 11/05/19 09:18 Colestid PO 2 gm BID HARSHAL Administration Diazepam 5 mg 11/01/19 04:00 11/04/19 15:18 Valium PO 5 mg Q4H PRN Administration FOR ASE 10 OR GREATER Dicyclomine HCl 10 mg 11/04/19 21:00 11/05/19 09:19 Bentyl PO 10 mg BID HARSHAL Administration Enoxaparin Sodium 40 mg 11/02/19 09:00 11/05/19 09:20 Lovenox SC 40 mg 0900 HARSHAL Administration Folic Acid 1 mg 11/01/19 09:00 11/05/19 09:18 Folvite PO 1 mg DAILY HARSHAL Administration Hydroxyzine HCl 50 mg 11/04/19 21:00 11/05/19 09:19 Atarax PO 50 mg BID HARSHAL Administration Insulin Glargine 15 units/ 0.15 mls @ 0 mls/hr 11/02/19 09:00 11/05/19 09:14 Miscellaneous Medication SC 0.15 mls QAM HARSHAL Administration Insulin Human Lispro 0 units 10/31/19 19:10 11/03/19 12:25 Humalog SC 2 unit .MILD SLIDING SCALE PRN Administration Mild Correctional Scale Iron/Minerals/Multivitamins 1 tab 11/01/19 09:00 11/05/19 09:18 Theragran M PO 1 tab DAILY HARSHAL Administration Lorazepam 1 mg 11/01/19 02:56 11/05/19 09:15 Ativan PO 1 mg Q6H PRN Administration Anxiety Magnesium Oxide 400 mg 11/01/19 09:00 11/05/19 09:18 Magnesium Oxide PO 400 mg DAILY HARSHAL Administration Mirtazapine 30 mg 11/04/19 21:00 11/04/19 20:48 Remeron Soltab PO 30 mg HS HARSHAL Administration Olanzapine 20 mg 11/05/19 09:00 11/05/19 09:18 Zyprexa Zydis PO 20 mg DAILY HARSHAL Administration Ondansetron HCl 4 mg 10/31/19 18:51 11/01/19 01:05 Zofran IVP 4 mg Q6H PRN Administration Nausea/Vomiting Paroxetine HCl 60 mg 11/05/19 09:00 11/05/19 09:17 Paxil PO 60 mg DAILY HARSHAL Administration Sodium Chloride 10 ml 10/31/19 19:13 11/05/19 09:20 Flush - Normal Saline IVF 10 ml PRN PRN Administration Saline Flush Thiamine HCl 100 mg 11/01/19 09:00 11/05/19 09:19 Thiamine PO 100 mg DAILY HARSHAL Administration Tramadol HCl 100 mg 11/01/19 16:21 11/02/19 04:43 Ultram PO 100 mg Q6H PRN Administration Moderate to Severe Pain (6-10) Tramadol HCl 50 mg 11/01/19 16:22 11/05/19 09:15 Ultram PO 50 mg Q6H PRN Administration Mild-Moderate Pain (1-5) - Exam General - other findings: sleeping ENT: moist mucosa Heart: RRR, no murmur, no gallops, no rubs Respiratory: no wheezes, no rales, no ronchi, normal chest expansion, no tachypnea Gastrointestinal: soft, non-tender, non-distended, normal bowel sounds Neurological - other findings: no tremor while sleeping Psychiatric: somnolent Hosp A/P (1) Alcohol dependence with withdrawal Code(s): F10.239 - ALCOHOL DEPENDENCE WITH WITHDRAWAL, UNSPECIFIED Status: Acute (2) Acute encephalopathy Code(s): G93.40 - ENCEPHALOPATHY, UNSPECIFIED Status: Acute (3) Depression with suicidal ideation Code(s): F32.9 - MAJOR DEPRESSIVE DISORDER, SINGLE EPISODE, UNSPECIFIED; R45.851 - SUICIDAL IDEATIONS Status: Acute (4) Hypokalemia Code(s): E87.6 - HYPOKALEMIA Status: Resolved (5) Hyponatremia Code(s): E87.1 - HYPO-OSMOLALITY AND HYPONATREMIA Status: Resolved (6) Alcohol abuse Code(s): F10.10 - ALCOHOL ABUSE, UNCOMPLICATED Status: Chronic (7) History of amputation below knee Code(s): Z89.519 - ACQUIRED ABSENCE OF UNSPECIFIED LEG BELOW KNEE Status: Chronic (8) Type 2 diabetes mellitus Status: Chronic Qualifiers: Diabetes mellitus lobsterman insulin use: with fpc use - Plan Acute alcohol withdrawl, giving valium, some hypertension and tachycardia that are resolving Not stable for [facility] yet Continue close monitoring and treatment for withdrawls. resumed patient's home meds for colitis and psychiatric disorders
[2019-11-05] MEDS: HumaLOG 300 UNITS/3 ML VIAL SC PRN ×2 (12:31→17:53)
[2019-11-05] MEDS: Mirtazapine 15 MG Soltab PO SCH (21:11)
[2019-11-06 04:55] LABS: #Lymphocytes 2.5 thou/uL (1.20-3.40); #Monocytes 0.7 thou/uL (0.11-0.59); %Basophils 0.1 % (0.0-1.0); %Eosinophils 0.3 % (0.0-10.0); %Lymphocytes 40.4 % (21.0-51.0); %Monocytes 11.8 % (0.0-10.0); %Neutrophils 47.3 % (42.0-75.0); Hemoglobin 11.3 g/dL (12.0-16.0); Mean Corpuscular HGB CONC 33.4 g/dL (32.0-36.0); Mean Corpuscular Hemoglobin 28.7 pg (27.0-31.0); Mean Platelet Volume 6.3 fL (7.4-10.4); Platelet Count 298 thou/uL (130-400); RBC Distribution Width 12.5 % (11.5-14.5); Red Blood Cell (RBC) Count 3.94 mill/uL (4.20-5.40); White Blood Cell (WBC) Count 6.2 thou/uL (4.8-10.8)
[2019-11-06 05:20] LABS: Anion Gap 13 mmol/L (10-20); BUN (Urea Nitrogen) 19 mg/dL (9.8-20.1); Calc. Creatinine Clearance 113 mL/min (70-130); Calcium 8.8 mg/dL (7.8-10.44); Carbon Dioxide 22 mmol/L (22-29); Chloride 108 mmol/L (98-107); Estimated GFR-MDRD 79; Glucose 129 mg/dL (70-105); Potassium 3.6 mmol/L (3.5-5.1); Sodium 139 mmol/L (136-145)
[2019-11-06] MEDS: Enoxaparin Sodium 40 MG/0.4 ML SYRINGE SC SCH (08:44)
[2019-11-06] MEDS: Dicyclomine 10 MG CAP PO SCH ×2 (08:44→19:59)
[2019-11-06] MEDS: Bupropion 150 MG XL TAB PO SCH (08:45)
[2019-11-06] MEDS: Magnesium Oxide 400 MG TAB PO SCH (08:45)
[2019-11-06] MEDS: OLANZapine ODT 5 MG TAB PO SCH (08:45)
[2019-11-06] MEDS: PARoxetine 20 MG TAB PO SCH (08:45)
[2019-11-06] MEDS: Folic Acid 1 MG TAB PO SCH (08:45)
[2019-11-06] MEDS: Thiamine 100 MG TAB PO SCH (08:46)
[2019-11-06] MEDS: Insulin Glargine 15 UNITS in Pre-Filled Syringe 1 EACH SC SCH (08:46)
[2019-11-06] MEDS: hydrOXYzine 25 MG TAB PO SCH ×2 (08:46→20:00)
[2019-11-06] MEDS: Multivitamin W/ Minerals 1 TAB PO SCH (08:46)
[2019-11-06] MEDS: Mesalamine DR 400 mg Capsule PO SCH ×2 (08:50→18:00)
--- NOTE | 2019-11-06 08:53 | PDOC.HOSPP ---
- Subjective Encounter Date: 11/06/19 Encounter Time: 12:00 Subjective: Patient cleared up markedly. No more AMS. Still quite depressed. SI on and off. Ready for [facility] eval. - Objective Vital Signs & Weight: Vital Signs (12 hours) Temp Pulse Resp BP BP Pulse Ox 11/06/19 07:42 98.9 F 86 16 175/81 H 175/81 H 99 11/06/19 04:00 99.4 F 88 16 136/83 136/83 92 L 11/06/19 00:30 98.5 F 85 16 117/59 L 117/59 L 96 Weight Admit Weight 192 lb 3.2 oz Weight 179 lb 9.6 oz I&O: 11/05/19 11/06/19 11/07/19 06:59 06:59 06:59 Intake Total 550 980 Balance 550 980 Result Diagrams: 11/06/19 04:17 11/06/19 04:16 Additional Labs: Accuchecks 11/06/19 11/05/19 11/05/19 05:23 21:12 17:15 POC Glucose 136 H 169 H 246 H 11/05/19 10:40 POC Glucose 225 H Hospitalist ROS - Review of Systems Constitutional: denies: fever, chills Respiratory: denies: cough, shortness of breath Cardiovascular: denies: chest pain, palpitations, orthopnea Gastrointestinal: reports: nausea. denies: vomiting, abdominal pain - Medication Medications: Active Medications Generic Name Dose Route Start Last Admin Trade Name Freq PRN Reason Stop Dose Admin Acetaminophen 650 mg 10/31/19 18:51 11/04/19 15:18 Tylenol PO 650 mg Q4H PRN Administration Headache/Fever/Mild Pain (1-3) Budesonide 9 mg 11/05/19 09:00 11/05/19 09:19 Entocort Ec PO 9 mg DAILY HARSHAL Administration Bupropion HCl 300 mg 11/05/19 09:00 11/05/19 09:17 Wellbutrin Xl PO 300 mg QAM HARSHAL Administration Colestipol HCl 2 gm 11/04/19 21:00 11/05/19 21:10 Colestid PO 2 gm BID HARSHAL Administration Diazepam 5 mg 11/01/19 04:00 11/04/19 15:18 Valium PO 5 mg Q4H PRN Administration FOR ASE 10 OR GREATER Dicyclomine HCl 10 mg 11/04/19 21:00 11/05/19 21:10 Bentyl PO 10 mg BID HARSHAL Administration Enoxaparin Sodium 40 mg 11/02/19 09:00 11/05/19 09:20 Lovenox SC 40 mg 0900 HARSHAL Administration Folic Acid 1 mg 11/01/19 09:00 11/05/19 09:18 Folvite PO 1 mg DAILY HARSHAL Administration Hydroxyzine HCl 50 mg 11/04/19 21:00 11/05/19 21:10 Atarax PO 50 mg BID HARSHAL Administration Insulin Glargine 15 units/ 0.15 mls @ 0 mls/hr 11/02/19 09:00 11/05/19 09:14 Miscellaneous Medication SC 0.15 mls QAM HARSHAL Administration Insulin Human Lispro 0 units 10/31/19 19:10 11/05/19 17:53 Humalog SC 3 unit .MILD SLIDING SCALE PRN Administration Mild Correctional Scale Iron/Minerals/Multivitamins 1 tab 11/01/19 09:00 11/05/19 09:18 Theragran M PO 1 tab DAILY HARSHAL Administration Lorazepam 1 mg 11/01/19 02:56 11/05/19 09:15 Ativan PO 1 mg Q6H PRN Administration Anxiety Magnesium Oxide 400 mg 11/01/19 09:00 11/05/19 09:18 Magnesium Oxide PO 400 mg DAILY HARSHAL Administration Mirtazapine 30 mg 11/04/19 21:00 11/05/19 21:11 Remeron Soltab PO 30 mg HS HARSHAL Administration Olanzapine 20 mg 11/05/19 09:00 11/05/19 09:18 Zyprexa Zydis PO 20 mg DAILY HARSHAL Administration Ondansetron HCl 4 mg 10/31/19 18:51 11/01/19 01:05 Zofran IVP 4 mg Q6H PRN Administration Nausea/Vomiting Paroxetine HCl 60 mg 11/05/19 09:00 11/05/19 09:17 Paxil PO 60 mg DAILY HARSHAL Administration Sodium Chloride 10 ml 10/31/19 19:13 11/05/19 09:20 Flush - Normal Saline IVF 10 ml PRN PRN Administration Saline Flush Thiamine HCl 100 mg 11/01/19 09:00 11/05/19 09:19 Thiamine PO 100 mg DAILY HARSHAL Administration Tramadol HCl 100 mg 11/01/19 16:21 11/02/19 04:43 Ultram PO 100 mg Q6H PRN Administration Moderate to Severe Pain (6-10) Tramadol HCl 50 mg 11/01/19 16:22 11/05/19 15:16 Ultram PO 50 mg Q6H PRN Administration Mild-Moderate Pain (1-5) - Exam General Appearance: NAD General - other findings: sleepy, easily arousable Eye: anicteric sclera ENT: moist mucosa Heart: RRR, no murmur, no gallops, no rubs Respiratory: CTAB, no wheezes, no rales, no ronchi Gastrointestinal: soft, non-tender, non-distended, normal bowel sounds Extremities: no edema Neurological - other findings: mild intention tremor Psychiatric: normal behavior, A&O x 3 Psychiatric - other findings: sad affect Hosp A/P (1) Alcohol dependence with withdrawal Code(s): F10.239 - ALCOHOL DEPENDENCE WITH WITHDRAWAL, UNSPECIFIED Status: Resolved (2) Acute encephalopathy Code(s): G93.40 - ENCEPHALOPATHY, UNSPECIFIED Status: Resolved (3) Depression with suicidal ideation Code(s): F32.9 - MAJOR DEPRESSIVE DISORDER, SINGLE EPISODE, UNSPECIFIED; R45.851 - SUICIDAL IDEATIONS Status: Acute (4) Hypokalemia Code(s): E87.6 - HYPOKALEMIA Status: Resolved (5) Hyponatremia Code(s): E87.1 - HYPO-OSMOLALITY AND HYPONATREMIA Status: Resolved (6) Alcohol abuse Code(s): F10.10 - ALCOHOL ABUSE, UNCOMPLICATED Status: Chronic (7) History of amputation below knee Code(s): Z89.519 - ACQUIRED ABSENCE OF UNSPECIFIED LEG BELOW KNEE Status: Chronic (8) Type 2 diabetes mellitus Status: Chronic Qualifiers: Diabetes mellitus senior living insulin use: with lobsterman use - Plan Acute alcohol withdrawl resolved, no valium for 2 days, last ativan yesterday morning Hypertension improved, mostly resolved. No more tachycardia Normal mental status ready for [facility] eval resumed patient's home meds for colitis and psychiatric disorders
--- NOTE | 2019-11-06 09:50 | PQF ---
CORRINA CAMPBELL RYAN ANDREW MD [id number] CLINICAL DOCUMENTATION IMPROVEMENT CLARIFICATION FORM: ICD-10 Updated PLEASE DO AN ADDENDUM TO THE PROGRESS NOTE WITH ANY DOCUMENTATION UPDATES OR ADDITIONS AND CARRY THROUGH TO DC SUMMARY. THANK YOU. DATE: 11/06/2019 , 11/07/2019 ATTN: DR. Ekaterina CHANEL, DR. Kory POTTER Please exercise your independent, professional judgment in responding to the clarification form. Clinical indicators are provided on the bottom of this form for your review. Please check appropriate box(s): Acute Encephalopathy: Etiology: [ ] Hypertensive [ xx ] Metabolic [xx ] Toxic [ ] Hepatic with Coma [ ] Hepatic w/o Coma [ ] Hypoxic [ ] Septic [ ] Wernickes [ ] Drug induced: [ ] Unspecified [ ] in the setting of underlying dementia [ ] Other (please specify) [ ] Transient Alteration of Awareness [ ] Other diagnosis [ ] Unable to determine In addition, please specify: Present on Admission (POA): [xx ] Yes [ ] No [ ] Unable to determine For continuity of documentation, please document condition throughout progress notes and discharge summary. Thank You. CLINICAL INDICATORS - SIGNS / SYMPTOMS / LABS / RESULTS AND LOCATION IN EMR 10/31 SODIUM 122 11/01 CREATININE 1.14 > 1.11 10/31 H&P (POPEYE) PRESENTED TO THE ED WITH ALTERED MENTAL STATUS. APPARENTLY SHE HAS BEEN DRINKING 24 OX=Z OF BEER DAILY. SHE ADDITIONALLY HAS NOT BEEN EATING AND DRINKING REGULAR WATER MUCH OVER THE PAST FEW DAYS. A/P: 2). ACUTE ENCEPHALOPATHY 11/01-11/06 PN (TARIQ) A/P: 3) ACUTE ENCEPHALOPATHY RISK: DX HYPONATREMIA, ALCOHOL ABUSE/WITHDRAW, HYPOKALEMIA, DM ( PN/YANIQUE) 11/03 TREATMENTS: VALIUM ORDERED (11/01) IV FLUIDS 11/01 THANK YOU! VERONIKA (This form is maintained as a part of the permanent medical record) 2014 [employer] All Rights Reserved DIXON [email or web address] [phone] [facility]
[2019-11-06] MEDS: Acetaminophen 325 MG TAB PO PRN (11:07)
[2019-11-06] MEDS: Ondansetron PF 4 MG/2 ML Vial IVP PRN (11:07)
[2019-11-06] MEDS: traMADol HCl 50 MG TAB PO PRN (15:55)
[2019-11-06] MEDS: Mirtazapine 15 MG Soltab PO SCH (20:00)
[2019-11-07 08:22] LABS: Anion Gap 14 mmol/L (10-20); BUN (Urea Nitrogen) 15 mg/dL (9.8-20.1); Calc. Creatinine Clearance 110 mL/min (70-130); Calcium 9.1 mg/dL (7.8-10.44); Carbon Dioxide 21 mmol/L (22-29); Chloride 109 mmol/L (98-107); Estimated GFR-MDRD 80; Glucose 109 mg/dL (70-105); Magnesium 2.1 mg/dL (1.6-2.6); Potassium 4.2 mmol/L (3.5-5.1); Sodium 140 mmol/L (136-145)
[2019-11-07] MEDS: OLANZapine ODT 5 MG TAB PO SCH (09:38)
[2019-11-07] MEDS: Bupropion 150 MG XL TAB PO SCH (09:39)
[2019-11-07] MEDS: Insulin Glargine 15 UNITS in Pre-Filled Syringe 1 EACH SC SCH (09:39)
[2019-11-07] MEDS: hydrOXYzine 25 MG TAB PO SCH ×2 (09:40→20:47)
[2019-11-07] MEDS: Mesalamine DR 400 mg Capsule PO SCH ×2 (09:40→18:38)
[2019-11-07] MEDS: PARoxetine 20 MG TAB PO SCH (09:40)
[2019-11-07] MEDS: Multivitamin W/ Minerals 1 TAB PO SCH (09:40)
[2019-11-07] MEDS: Lorazepam 1 MG TAB PO PRN ×3 (09:41→20:55)
[2019-11-07] MEDS: Folic Acid 1 MG TAB PO SCH (09:41)
[2019-11-07] MEDS: Dicyclomine 10 MG CAP PO SCH ×2 (09:41→20:47)
[2019-11-07] MEDS: Magnesium Oxide 400 MG TAB PO SCH (09:41)
[2019-11-07] MEDS: Thiamine 100 MG TAB PO SCH (09:41)
[2019-11-07] MEDS: Ondansetron PF 4 MG/2 ML Vial IVP PRN (09:41)
[2019-11-07] MEDS: Enoxaparin Sodium 40 MG/0.4 ML SYRINGE SC SCH (09:41)
[2019-11-07] MEDS ORDERED: hydrOXYzine 25 MG TAB PO PRN (11:06)
--- NOTE | 2019-11-07 11:15 | PDOC.HOSPP ---
- Subjective Encounter Date: 11/07/19 (f/u hyponatremia) Encounter Time: 11:08 Subjective: Pt c/o nausea, vomiting, abd pain today. States this can be related to her nerves. Denies CP/SOB - Objective Vital Signs & Weight: Vital Signs (12 hours) Temp Pulse Resp BP BP Pulse Ox 11/07/19 04:00 98.3 F 86 18 135/81 135/81 95 11/07/19 00:00 98.6 F 81 16 135/67 135/67 96 Weight Admit Weight 192 lb 3.2 oz Weight 177 lb 12.8 oz I&O: 11/06/19 11/07/19 11/08/19 06:59 06:59 06:59 Intake Total 980 440 Output Total 500 Balance 980 -60 Result Diagrams: 11/06/19 04:17 11/07/19 07:28 Additional Labs: Accuchecks 11/07/19 11/06/19 11/06/19 05:14 20:35 17:13 POC Glucose 108 116 H 109 11/06/19 11:19 POC Glucose 135 H EKG Reviewed by me: Yes (tele - sinus 80's) Hospitalist ROS - Medication Medications: Active Medications Generic Name Dose Route Start Last Admin Trade Name Freq PRN Reason Stop Dose Admin Acetaminophen 650 mg 10/31/19 18:51 11/06/19 11:07 Tylenol PO 650 mg Q4H PRN Administration Headache/Fever/Mild Pain (1-3) Budesonide 9 mg 11/05/19 09:00 11/07/19 09:37 Entocort Ec PO 9 mg DAILY HARSHAL Administration Bupropion HCl 300 mg 11/05/19 09:00 11/07/19 09:39 Wellbutrin Xl PO 300 mg QAM HARSHAL Administration Colestipol HCl 2 gm 11/04/19 21:00 11/07/19 09:40 Colestid PO 2 gm BID HARSHAL Administration Diazepam 5 mg 11/01/19 04:00 11/04/19 15:18 Valium PO 5 mg Q4H PRN Administration FOR ASE 10 OR GREATER Dicyclomine HCl 10 mg 11/04/19 21:00 11/07/19 09:41 Bentyl PO 10 mg BID HARSHAL Administration Enoxaparin Sodium 40 mg 11/02/19 09:00 11/07/19 09:41 Lovenox SC 40 mg 0900 HARSHAL Administration Folic Acid 1 mg 11/01/19 09:00 11/07/19 09:41 Folvite PO 1 mg DAILY HARSHAL Administration Hydroxyzine HCl 50 mg 11/04/19 21:00 11/07/19 09:40 Atarax PO 50 mg BID HARSHAL Administration Insulin Glargine 15 units/ 0.15 mls @ 0 mls/hr 11/02/19 09:00 11/07/19 09:39 Miscellaneous Medication SC 0.15 mls QAM HARSHAL Administration Insulin Human Lispro 0 units 10/31/19 19:10 11/05/19 17:53 Humalog SC 3 unit .MILD SLIDING SCALE PRN Administration Mild Correctional Scale Iron/Minerals/Multivitamins 1 tab 11/01/19 09:00 11/07/19 09:40 Theragran M PO 1 tab DAILY HARSHAL Administration Lorazepam 1 mg 11/01/19 02:56 11/07/19 09:41 Ativan PO 1 mg Q6H PRN Administration Anxiety Magnesium Oxide 400 mg 11/01/19 09:00 11/07/19 09:41 Magnesium Oxide PO 400 mg DAILY HARSHAL Administration Mesalamine 1,200 mg 11/06/19 08:00 11/07/19 09:[address] PO 1,200 mg BID-WM HARSHAL Administration Mirtazapine 30 mg 11/04/19 21:00 11/06/19 20:00 Remeron Soltab PO 30 mg HS HARSHAL Administration Olanzapine 20 mg 11/05/19 09:00 11/07/19 09:38 Zyprexa Zydis PO 20 mg DAILY HARSHAL Administration Ondansetron HCl 4 mg 10/31/19 18:51 11/07/19 09:41 Zofran IVP 4 mg Q6H PRN Administration Nausea/Vomiting Paroxetine HCl 60 mg 11/05/19 09:00 11/07/19 09:40 Paxil PO 60 mg DAILY HARSHAL Administration Sodium Chloride 10 ml 10/31/19 19:13 11/05/19 09:20 Flush - Normal Saline IVF 10 ml PRN PRN Administration Saline Flush Thiamine HCl 100 mg 11/01/19 09:00 11/07/19 09:41 Thiamine PO 100 mg DAILY HARSHAL Administration Tramadol HCl 50 mg 11/01/19 16:22 11/05/19 15:16 Ultram PO 50 mg Q6H PRN Administration Mild-Moderate Pain (1-5) - Exam General Appearance: NAD Heart: RRR, no murmur, no gallops, no rubs Respiratory: CTAB, no wheezes, no rales, no ronchi Gastrointestinal: soft, non-distended, normal bowel sounds Gastrointestinal - other findings: no palpable abnormality Extremities: no cyanosis, no clubbing, no edema Hosp A/P (1) Hyponatremia Code(s): E87.1 - HYPO-OSMOLALITY AND HYPONATREMIA Status: Resolved (2) Hypokalemia Code(s): E87.6 - HYPOKALEMIA Status: Resolved (3) Acute encephalopathy Code(s): G93.40 - ENCEPHALOPATHY, UNSPECIFIED Status: Resolved (4) Alcohol abuse Code(s): F10.10 - ALCOHOL ABUSE, UNCOMPLICATED Status: Chronic (5) Depression with suicidal ideation Code(s): F32.9 - MAJOR DEPRESSIVE DISORDER, SINGLE EPISODE, UNSPECIFIED; R45.851 - SUICIDAL IDEATIONS Status: Acute (6) Type 2 diabetes mellitus Status: Chronic Qualifiers: Diabetes mellitus termite inspector insulin use: with termite inspector use (7) Abdominal pain Code(s): R10.9 - UNSPECIFIED ABDOMINAL PAIN Status: Acute - Plan Benign abd exam - add PPI - check XR - continue prn nausea meds - consider GI consult Mood d/o - pt is written for home meds - add prn hydroxyzine for anxiety - prn ativan [facility] eval yesterday - cleared for d/c to home Encourage ambulation dvt prophy - lovenox gi prophy - starting PPI code status full reviewed plan of care with patient, no questions or further needs at end of eval When sx either managed or resolved, anticipate discharge to home.
[2019-11-07 13:42] VITALS: BMI 32.5
--- NOTE | 2019-11-07 15:05 | RAD ---
ABDOMEN TWO VIEWS: HISTORY: Abdominal pain. FINDINGS: There is some minimal gas and fecal material and some fluid in the colon. No evidence for large or sm all bowel obstruction. No free intraperitoneal air. No bowel obstruction. IMPRESSION: There are a few scattered air-fluid levels in the right colon. No evidence for significant acute proc ess. No bowel obstruction. POS: TPC
[2019-11-07] MEDS: traMADol HCl 50 MG TAB PO PRN (15:52)
[2019-11-07] MEDS: Mirtazapine 15 MG Soltab PO SCH (20:48)
[2019-11-08] MEDS: traMADol HCl 50 MG TAB PO PRN ×2 (05:10→13:04)
[2019-11-08] MEDS: Lorazepam 1 MG TAB PO PRN ×2 (05:10→13:04)
[2019-11-08 06:58] LABS: Anion Gap 12 mmol/L (10-20); BUN (Urea Nitrogen) 17 mg/dL (9.8-20.1); Calc. Creatinine Clearance 104 mL/min (70-130); Calcium 8.9 mg/dL (7.8-10.44); Carbon Dioxide 24 mmol/L (22-29); Chloride 108 mmol/L (98-107); Estimated GFR-MDRD 74; Glucose 120 mg/dL (70-105); Potassium 3.9 mmol/L (3.5-5.1); Sodium 140 mmol/L (136-145)
[2019-11-08] MEDS: Ondansetron PF 4 MG/2 ML Vial IVP PRN (07:43)
[2019-11-08] MEDS: Insulin Glargine 15 UNITS in Pre-Filled Syringe 1 EACH SC SCH (07:45)
[2019-11-08 08:20] VITALS: TEMP 98
[2019-11-08] MEDS: Bupropion 150 MG XL TAB PO SCH (08:45)
[2019-11-08] MEDS: Magnesium Oxide 400 MG TAB PO SCH (08:45)
[2019-11-08] MEDS: Mesalamine DR 400 mg Capsule PO SCH ×2 (08:45→17:02)
[2019-11-08] MEDS: Dicyclomine 10 MG CAP PO SCH (08:46)
[2019-11-08] MEDS: PARoxetine 20 MG TAB PO SCH (08:46)
[2019-11-08] MEDS: Folic Acid 1 MG TAB PO SCH (08:46)
[2019-11-08] MEDS: hydrOXYzine 25 MG TAB PO SCH (08:46)
[2019-11-08] MEDS: Multivitamin W/ Minerals 1 TAB PO SCH (08:46)
[2019-11-08] MEDS: Enoxaparin Sodium 40 MG/0.4 ML SYRINGE SC SCH (08:47)
[2019-11-08] MEDS: Thiamine 100 MG TAB PO SCH (08:47)
[2019-11-08] MEDS: OLANZapine ODT 5 MG TAB PO SCH (08:57)
[2019-11-08 15:54] VITALS: BP 124/80
--- NOTE | 2019-11-09 04:24 | DIS ---
DATE OF ADMISSION: 10/31/2019 DATE OF DISCHARGE: 11/08/2019 INSOLE ROUNDER: Dr. Cochran of Nephrology. MEDICATIONS: Reconciled at discharge. New medications; 1. Folic acid 1 mg p.o. daily. 2. Lorazepam 1 mg q.8 hours p.r.n. for anxiety. Prescription provided for seven tablets, no refills. Further refills from Dr. Lee or [facility]. 3. Multivitamin one daily. 4. Thiamine 100 mg daily. 5. Tramadol 50 mg one tablet every 8 hours as needed for moderate to severe pain. Prescription provided for seven tablets, refills from Dr. Lee or other physician. 6. Colace 100 mg p.o. b.i.d. Medications to continue; 1. Budesonide 9 mg daily p.o. 2. Colestid 1 g tablet 2 g p.o. b.i.d. 3. Dicyclomine 10 mg b.i.d. 4. NovoLog, the patient uses sliding scale twice daily with meals. 5. Levemir 13 units b.i.d. 6. Mesalamine 1 tablet b.i.d. of the 1.2 g. 7. Mirtazapine 15 mg two tablets at bedtime. 8. Olanzapine 20 mg daily. 9. Paroxetine 30 mg tablet two tablets daily. 10. Bupropion 300 mg daily of the XL. 11. Hydroxyzine 2 tablets p.o. b.i.d. FINAL DIAGNOSES: 1. Hyponatremia, multifactorial secondary to medications, beer potomania, and decreased p.o. intake. 2. Acute encephalopathy and alcohol withdrawal, resolved. 3. Major depressive disorder and anxiety. 4. Suicidal ideation, resolved. 5. Normocytic anemia, mild. SECONDARY DIAGNOSES: 1. Type 2 diabetes. 2. History of diabetic ketoacidosis. HISTORY OF PRESENT ILLNESS: Ms. Bridges is a 54-year-old female with the above medical problems, who presented to the emergency room with altered mental status. She was found to have a sodium of 118 and was admitted for this. During the interview, the patient did note depression, thoughts of suicide. HOSPITAL COURSE: The patient was managed with IV fluids, Nephrology was consulted and the IV fluids were discontinued. Her sodium corrected back to normal throughout this hospitalization and remained normal. The patient has undergone alcohol withdrawal, was monitored and treated through the ASE protocol, which she tolerated well. She has been on vitamin supplementation while here. She was cleared for evaluation a few days ago by [facility], and they recommend follow up in the outpatient setting for treatment of significant depression. The patient has not expressed any intent to harm herself or others. The patient has remained in the hospital overnight from yesterday secondary to nausea, vomiting, abdominal pain. She reports that this is chronic in nature and associated with anxiety. An x-ray was performed, which did not show any obstruction. She has been using Ativan approximately three times a day to manage anxiety, we will continue this short term in the outpatient setting. The patient does have a followup with [facility] for review of her medications, optimizing medications for management of anxiety and depression. I am discharging her with seven tablets total of this, on recommendation that she follow up either with [facility] or with Dr. Lee, her primary care for discussion on refill versus alternatives to manage the symptoms. The patient was falling quite a bit at home, likely secondary to the hyponatremia and alcohol use. She has multiple areas of ecchymosis on her right leg and has been using tramadol. I will prescribe low-dose tramadol for use every 8 hours, with followup either with Dr. Lee or another physician to determine if this is appropriate to continue. The patient has been evaluated by Physical Therapy and Occupational Therapy while here. The patient is overall improved, the anxiety is better controlled, she has undergone alcohol withdrawal, and she does meet criteria for discharge to home. PHYSICAL EXAMINATION: VITAL SIGNS: Temperature 98, pulse 86, respirations 18, sat 94% on room air, and blood pressure 112/72. GENERAL: Awake, alert, responsive, not in apparent distress. LUNGS: Clear to auscultation bilateral. HEART: Normal S1 and S2. Regular rate and rhythm. No significant murmur. ABDOMEN: Soft with present bowel sounds. Nontender, nondistended. EXTREMITIES: She has a left BKA, there are areas of ecchymosis on her right leg. [facility] FINDINGS AND TEST RESULTS: Renal panel; today 137, 4.0, 104, 22, 17, 0.8, 153. Blood sugars over the past 24 hours have ranged from 123 to 181. Hemoglobin A1c 6.3. T bilirubin 0.5, AST 22, ALT 21, alkaline phosphatase 81, total protein 5.8, albumin 3.6. TSH 1.13. CBC; 6.2, 11.3, 33.9, 298. Urinalysis on admission, trace ketones, trace blood. Urine drug screen shows present amphetamines, negative salicylates, acetaminophen, and plasma alcohol. Abdominal x-ray on November 07, a few scattered air-fluid levels in the right colon. No evidence for significant acute process and no bowel obstruction. DIET: Carbohydrate consistent. ACTIVITY: As tolerated. FOLLOWUP: 1. Followup is with Dr. Lee, recommend as soon as available for review of this hospitalization, evaluation of mood, refill of medication if appropriate and to address any other needs. 2. Follow up with [facility] for evaluation and adjustment of medications for anxiety and depression. Reviewed with the patient this hospitalization, the importance of followup, the prescriptions that are short-term to be evaluated again either by MR, Dr. Lee or another physician, and return for care precautions. She demonstrates understanding. Total time coordinating discharge is 35 minutes. CODE STATUS: Full. DISCHARGE DISPOSITION: Home. Job ID: [id number] [facility]
== END 2019-11-08 17:27 | disposition home or self-care (01) | DRG 640 ==
LOC: ERS 15:42 → ERHOLD 20:24 → 2NO 22:32 → T4-B 11-07 15:43
PROVIDERS: ADMIT Internal Medicine; ATTEND Internal Medicine
DX: E87.1 Hypo-osmolality and hyponatremia (principal); G92 Toxic encephalopathy; F10.239 Alcohol dependence with withdrawal, unspecified; F32.9 Major depressive disorder, single episode, unspecified; F41.9 Anxiety disorder, unspecified; D64.9 Anemia, unspecified; E11.9 Type 2 diabetes mellitus without complications; K52.9 Noninfective gastroenteritis and colitis, unspecified; I10 Essential (primary) hypertension; Z79.4 Long term (current) use of insulin; E87.6 Hypokalemia; I73.9 Peripheral vascular disease, unspecified; Z89.512 Acquired absence of left leg below knee; Z90.710 Acquired absence of both cervix and uterus
CPT/HCPCS: 36415; 36416; 74019; 80048; 80306; 80307; 83036; 83735; 84443; 85025; 93005; 96374; J1650; J1815; J2405; J3411; J3475; J3490